=== PATIENT | male | born 1990 ===

== ENCOUNTER 2017-07-10 08:00 | Emergency (ER) | payer SELFPAY ==
[2017-07-10 08:11] VITALS: BMI 20.9
[2017-07-10] MEDS ORDERED: Sodium Chloride 0.9% 1,000 ML IV STA (08:33)
--- NOTE | 2017-07-10 08:37 | ED PDOC ---
HPI: Male Pain Time Seen by Provider: 07/10/17 08:11 Chief Complaint (Nursing): Male Genitourinary Chief Complaint (Provider): Dysuria History Per: Patient History/Exam Limitations: no limitations Onset/Duration Of Symptoms: Days (Tuesday) Current Symptoms Are (Timing): Still Present Additional Complaint(s): Pt. with bloody urine and dysuria. No testicular or penis pain. Not urinating more freq. Also has mild headache, not worst in his life frontal and behind eyes. No neck pain, numbness, tingles, weakness, dizziness. No abd pain, chest pain, back pain, diarrhea, nausea, vomit. No fever. Took amoxicillin yesterday given by a friend. No vision changes. Past Medical History Reviewed: Nursing Documentation, Vital Signs Vital Signs: Last Vital Signs Temp 100.3 F H 07/10/17 08:11 Pulse 101 H 07/10/17 08:11 Resp 17 07/10/17 08:11 BP 126/73 07/10/17 08:11 Pulse Ox 97 07/10/17 08:11 - Medical History PMH: No Chronic Diseases - Surgical History Surgical History: No Surg Hx - Family History Family History: States: Unknown Family Hx - Living Arrangements Living Arrangements: With Family - Social History Alcohol: None Drugs: Denies - Immunization History Hx Tetanus Toxoid Vaccination: No Hx Influenza Vaccination: No Hx Pneumococcal Vaccination: No - Home Medications Home Medications: Ambulatory Orders Medication Instructions Recorded Ciprofloxacin HCl [Cipro] 500 mg PO BID 7 Days tab 07/10/17 Ibuprofen [Motrin] 600 mg PO TID 7 Days tab 07/10/17 - Allergies Allergies/Adverse Reactions: Allergies Allergy/AdvReac Type Severity Reaction Status Date / Time No Known Allergies Allergy Verified 07/10/17 08:25 Review of Systems ROS Statement: Except As Marked, All Systems Reviewed And Found Negative Genitourinary Male: Positive for: Dysuria, Hematuria Neurological: Positive for: Headache Physical Exam - Reviewed Nursing Documentation Reviewed: Yes Vital Signs Reviewed: Yes - Physical Exam Appears: Positive for: Non-toxic, No Acute Distress Head Exam: Positive for: ATRAUMATIC, NORMAL INSPECTION, NORMOCEPHALIC Skin: Positive for: Normal Color, Warm, DRY Eye Exam: Positive for: EOMI, Normal appearance, PERRL ENT: Positive for: Normal ENT Inspection Neck: Positive for: Normal, Painless ROM Cardiovascular/Chest: Positive for: Regular Rate, Rhythm Respiratory: Positive for: CNT, Normal Breath Sounds Gastrointestinal/Abdominal: Positive for: Normal Exam, Soft. Negative for: Tenderness Back: Positive for: Normal Inspection. Negative for: L CVA Tenderness, R CVA Tenderness Extremity: Positive for: Normal ROM. Negative for: Tenderness, Pedal Edema Neurologic/Psych: Positive for: Alert, firearms inspector II-XII, Oriented. Negative for: Motor/Sensory Deficits, Aphasia, Facial Droop - Laboratory Results Result Diagrams: 07/10/17 08:45 07/10/17 08:45 Interpretation Of Abn Labs: 18.2 wbc - ECG O2 Sat by Pulse Oximetry: 97 Pulse Ox Interpretation: Normal - Progress ED Course And Treament: 1106: Pt. is stable. AAOx3. Pain free. Tolerated PO. Afebrile. Made aware of need for a lumbar puncture to further evaluate his headache for possible meningitis or other etiology of it. Pt. aware of possible or decreased functioning from the diagnosis and not being treated. Pt. refusing lumbar puncture and states he will come back if his symptoms return. Will tx for uti. WBC elevation can be related to the uti and fever vs. possible other etiology that needs LP evaluation for. Disposition - Clinical Impression Clinical Impression: UTI (urinary tract infection), Headache - Patient ED Disposition Is Patient to be Admitted: No Counseled Patient/Family Regarding: Studies Performed, Diagnosis, Need For Followup, Rx Given - Disposition Referrals: [facility] [Outside] - 07/11/17 Disposition: Routine/Home Disposition Time: 11:09 Condition: STABLE Additional Instructions: Return soon as possible for further evaluation and treatment. You are refusing to get a lumbar puncture for further evaluation and treatment. You could have meningitis or other issues that is causing your headache and high white blood cell count. You are going home on your own risk that you can or have decreased functioning if the headache is caused by a serious illness. Prescriptions: Ciprofloxacin HCl [Cipro] 500 mg PO BID 7 Days tab Ibuprofen [Motrin] 600 mg PO TID 7 Days tab Instructions: Headache, Adult (DC), Urinary Tract Infections in Adults
[2017-07-10 09:13] LABS: BASO % 0.2 % (0.0-2.0); HEMOGLOBIN 13.4 g/dL (12.0-18.0); LYMPH # 1.6 K/uL (1.0-4.3); LYMPH % 8.8 % (20.0-40.0); MEAN CELL VOLUME 90.9 fl (80.0-94.0); MEAN CORPUSCULAR HGB CONC 34.1 g/dL (33.0-37.0); MEAN PLATELET VOLUME 9.9 fl (7.2-11.7); MONO # 1.5 K/uL (0.0-0.8); NEUT # 15.1 K/uL (1.8-7.0); PLATELET COUNT 183 K/uL (130-400); RBC 4.33 Mil/uL (4.40-5.90); RED CELL DISTRIBUTION WIDTH 13.3 % (11.5-14.5); WHITE BLOOD COUNT 18.2 K/uL (4.8-10.8)
[2017-07-10 09:17] LABS: ALB/GLOB RATIO 1.1 (1.0-2.1); ALBUMIN 4.1 g/dL (3.5-5.0); ALT/SGPT 33 U/L (21-72); AST/SGOT 28 U/L (17-59); BLOOD UREA NITROGEN 8 mg/dl (9-20); CALCIUM 9.5 mg/dL (8.4-10.2); GFR AFRICAN-AMERICAN > 60; GFR NON-AFRICAN AMERICAN > 60
[2017-07-10 10:59] LABS: URINE BACTERIA MOD (<OCC); URINE BILIRUBIN NEGATIVE (NEGATIVE); URINE BLOOD LARGE (NEGATIVE); URINE CLARITY CLOUDY (Clear); URINE COLOR AMBER (YELLOW); URINE GLUCOSE (UA) NEG (Normal); URINE LEUKOCYTE ESTERASE LARGE Leu/uL (Negative); URINE PROTEIN 30 mg/dL (NEGATIVE)
[2017-07-10 11:35] VITALS: BP 138/72; PULSE 79; RESP 18; TEMP 98.4; O2SAT 100
[2017-07-10 12:05] LABS: BANDS 1 % (0-2); LYMPHOCYTE 7 % (20-50); MONOCYTE 6 % (0-10); NEUTROPHIL 86 % (42-75); PLATELET ESTIMATE NORMAL (NORMAL); TOTAL CELLS COUNTED 100
== END 2017-07-10 11:20 | disposition home or self-care (01) ==
LOC: H.ER 08:00
DX: N39.0 Urinary tract infection, site not specified (principal); R51 Headache
CPT/HCPCS: 80053; 81003; 85025; 87086; 87181; 96361; 96374; 96375; 99284; J1885; J2270; J7030